=== PATIENT | female | born 1995 ===

== ENCOUNTER 2020-03-06 13:45 | Outpatient (REF) | payer OTHER, SELFPAY ==
[2020-03-07 02:21] LABS: CT PCR NOT DETECTED (Not Detect.); NG PCR NOT DETECTED (Not Detect.)
== END 2020-03-06 13:46 | disposition home or self-care (01) ==
LOC: HO.LAB 13:45
PROVIDERS: PCP Internal Medicine; Referring Provider Internal Medicine; Visit Provider Advanced Practice Midwife
DX: Z01.419 Encounter for gynecological examination (general) (routine) without abnormal findings (principal); R10.2 Pelvic and perineal pain; Z30.09 Encounter for other general counseling and advice on contraception; Z86.19 Personal history of other infectious and parasitic diseases
CPT/HCPCS: 87491; 87591

== ENCOUNTER → 2020-08-28 09:44 | Outpatient (BNVA) | payer OTHER, SELFPAY | PROVIDERS: PCP Internal Medicine; Visit Provider Obstetrics & Gynecology ==

== ENCOUNTER 2020-11-13 13:35 | Outpatient (REF) | payer OTHER, SELFPAY ==
--- NOTE | ~2020-11-13 | US_ITS ---
EXAMINATION: US PELVIS CLINICAL INFORMATION: Left ovarian cyst COMPARISON: None TECHNIQUE: Transabdominal and transvaginal pelvic ultrasound was performed. Transvaginal exam was performed for better visualization of the uterus and ovaries. FINDINGS: The uterus is anteverted and measures 7 x 3.8 x 5.1 cm in dimension. No focal uterine lesion is seen. Endometrial thickness is normal measuring 0.3 cm. The ovaries are normal in size. Right ovary measures 2.5 x 1.8 x 1.8 cm. The left ovary measures 2.8 x 1.4 x 1.5 cm. There are multiple small cysts or follicles seen in both ovaries, all measuring less than 1 cm. There is a small amount of fluid in the pelvis. US/US pelvic and transvaginal IMPRESSION: Unremarkable exam. There are multiple small subcentimeter simple cysts or follicles in both ovaries.
== END 2020-11-13 13:36 | disposition home or self-care (01) ==
LOC: HO.US 13:35
PROVIDERS: Visit Provider Obstetrics & Gynecology
DX: N83.202 Unspecified ovarian cyst, left side (principal)
CPT/HCPCS: 76830; 76856

== ENCOUNTER → 2020-11-20 11:16 | Outpatient (BNVA) | payer OTHER, SELFPAY | PROVIDERS: Visit Provider Advanced Practice Midwife ==

== ENCOUNTER 2021-10-04 10:18 | Outpatient (REF) | payer OTHER, SELFPAY ==
[2021-10-04 15:09] LABS: CT PCR NOT DETECTED (Not Detect.); NG PCR NOT DETECTED (Not Detect.)
[2021-10-05 09:51] LABS: BV Int Neg Control Negative (Negative); BV Int Pos Control Positive (Positive)
== END 2021-10-04 10:19 | disposition home or self-care (01) ==
LOC: HO.LAB 10:18
PROVIDERS: Visit Provider Advanced Practice Midwife
DX: Z01.419 Encounter for gynecological examination (general) (routine) without abnormal findings (principal); R10.2 Pelvic and perineal pain
CPT/HCPCS: 87480; 87491; 87510; 87591; 87660; 88142

== ENCOUNTER 2021-11-09 15:09 | Outpatient (REF) | payer OTHER, SELFPAY ==
--- NOTE | ~2021-11-09 | US_ITS ---
EXAMINATION: US PELVIS CLINICAL INFORMATION: Left ovarian cyst, last menstrual period 10/28/2021 COMPARISON: None TECHNIQUE: Ultrasound of the pelvis is performed using both transabdominal and transvaginal transducers along with Doppler. Transvaginal imaging is performed due to inadequate visualization transabdominally. FINDINGS: The uterus is heterogeneous and measures 7.7 x 3.4 x 4.4 cm. No discrete fibroids. No significant free fluid. Endometrial thickness is 0.9 cm. Right ovary measures 3.4 x 2.6 x 2.2 cm, volume 10.2 mL and left ovary 2.8 x 2.3 x 1.5 cm, volume 5.1 mL. A 2.1 x 2.1 x 2.3 cm right ovarian cyst is likely simple. A 1.2 x 0.8 x 1.0 cm left ovarian cyst is likely simple and likely physiologic. US/US pelvic and transvaginal IMPRESSION: 1. Heterogeneous uterus. No discrete fibroid. 2. Right ovarian 2.3 cm cyst is likely simple. 3. Endometrial thickness 0.9 cm.
== END 2021-11-09 15:10 | disposition home or self-care (01) ==
LOC: HO.US 15:09
PROVIDERS: Visit Provider Advanced Practice Midwife
DX: N83.209 Unspecified ovarian cyst, unspecified side (principal); R10.2 Pelvic and perineal pain
CPT/HCPCS: 76830; 76856

== ENCOUNTER 2022-01-02 11:01 | Outpatient (REF) | payer OTHER, SELFPAY ==
[2022-01-02 13:15] LABS: HCG Quantitative 20534 mIU/mL
== END 2022-01-02 11:02 | disposition home or self-care (01) ==
LOC: HO.LAB 11:01
PROVIDERS: Visit Provider Advanced Practice Midwife
DX: Z32.01 Encounter for pregnancy test, result positive (principal); N83.209 Unspecified ovarian cyst, unspecified side
CPT/HCPCS: 36415; 84702; 99212

== ENCOUNTER 2022-01-04 14:56 | Outpatient (REF) | payer OTHER, SELFPAY ==
[2022-01-04 16:34] LABS: HCG Quantitative 30816 mIU/mL
== END 2022-01-04 14:57 | disposition home or self-care (01) ==
LOC: HO.LAB 14:56
PROVIDERS: Visit Provider Advanced Practice Midwife
DX: Z32.01 Encounter for pregnancy test, result positive (principal)
CPT/HCPCS: 36415; 84702

== ENCOUNTER 2022-01-18 10:42 | Outpatient (REF) | payer OTHER, SELFPAY ==
--- NOTE | ~2022-01-18 | US_ITS ---
EXAMINATION: US OBSTETRICAL ULTRASOUND CLINICAL INFORMATION: Positive test. Check size and dates. COMPARISON: None. LMP: 11/23/2021. Gestational age by maternal dates is 8 weeks 0 days Estimated date of delivery by maternal dates is 08/30/2022. TECHNIQUE: Transabdominal first trimester OB ultrasound FINDINGS: There is a single intrauterine gestational sac with visible yolk sac, embryo/fetus, and cardiac activity. There is no significant subchorionic hemorrhage or hematoma. HR: 169 beats per minute. CRL (crown rump length): 1.7 cm (8 weeks 2 days +/- 4 days). REJI (estimated date of delivery): 08/28/2022 +/- 4 days. MATERNAL ADNEXA: The right maternal ovary measures 3.8 x 2.2 x 2.6 cm. The left maternal ovary measures 4.2 x 2.6 x 2.7 cm. There is a 2.1 x 1.5 x 2.1 cm left renal cyst. There is no significant maternal adnexal mass. No maternal pelvic ascites. US/US OB <= 14 weeks fetus IMPRESSION: 1. Single intrauterine gestation with ultrasound gestational age of 8 weeks 2 days +/- 4 days. 2. Estimated date of delivery is 08/28/2022 +/- 4 days. 3. No maternal adnexal mass or pelvic ascites.
== END 2022-01-18 10:43 | disposition home or self-care (01) ==
LOC: HO.US 10:42
PROVIDERS: Visit Provider Advanced Practice Midwife
DX: Z34.91 Encounter for supervision of normal pregnancy, unspecified, first trimester (principal); Z3A.08 8 weeks gestation of pregnancy
CPT/HCPCS: 76801

== ENCOUNTER 2022-12-04 08:34 | Outpatient (REF) | payer OTHER, SELFPAY ==
[2022-12-04 11:40] LABS: HBc Num1 0.05 S/CO (0.00-0.79); HIV AB/AG Nonreactive (Nonreactive); HIV Num 1 0.05 S/CO (0.00-0.99); Hepatitis B Core Antibody Nonreactive (Nonreactive); Syphilis Screen Nonreactive (Nonreactive); ~HepC Num1 0.06 S/CO (0.00-0.79); ~Hepatitis C Antibody Nonreactive (Nonreactive)
[2022-12-04 13:08] LABS: CT PCR NOT DETECTED (Not Detect.); NG PCR NOT DETECTED (Not Detect.)
[2022-12-05 15:17] LABS: BV Int Neg Control Negative (Negative); BV Int Pos Control Positive (Positive)
== END 2022-12-04 08:35 | disposition home or self-care (01) ==
LOC: HO.LAB 08:34
PROVIDERS: Visit Provider Advanced Practice Midwife
DX: Z01.419 Encounter for gynecological examination (general) (routine) without abnormal findings (principal); Z11.4 Encounter for screening for human immunodeficiency virus [HIV]; Z20.2 Contact with and (suspected) exposure to infections with a predominantly sexual mode of transmission
CPT/HCPCS: 0353U; 86704; 86780; 86803; 87389; 87480; 87510; 87660

== ENCOUNTER 2022-12-04 08:34 | Outpatient (AMB) | payer OTHER, SELFPAY ==
[2022-12-04 08:44] VITALS: BP 110/70; BMI 24.7
--- NOTE | 2022-12-04 08:44 | MHC.OFFVIS ---
Intake Vital Signs 12/04/22 08:44 Height 5 ft 1 in Weight 131 lb BMI 24.7 BP 110/70 Intake Visit Reasons: Annual/30 mins Programming Development Project Manager Required: Yes Programming Development Project Manager Language: Shirt Marker Name: Emy Information Interpreted: non-clinical & clinical Advertising Rep: Advertising Rep Present (Emy) Allergies No Known Allergies Allergy (Verified 12/04/22 08:46) Is last menstrual period known: Yes Last menstrual period: 12/01/22 HPI HPI Comments History of Present Illness Details She is a premenopausal woman presenting for annual exam. 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 She admits to eating healthy and tries to stay active with exercise. Currently sexually active. Uses Mirena for BC. Delivered In August at [facility] where they inserted IUD in September . Denies vaginal itching and irritation. STD screening and blood work offered; she accepts. Denies family hx of breast, colon and ovarian cancer. Last pap smear 10/04/21. [facility] Medical History Cyst of ovary Surgical History No history of previous surgery Family History Father HTN (hypertension) Paternal Grandmother Skin cancer Mother Uterine cancer Paternal Aunt Lung cancer Maternal Grandmother Diabetes Paternal Grandfather Diabetes Social History Alcohol intake: never Patient Tobacco Use Status: Never used Tobacco Sexual orientation: Straight/Heterosexual Gender identity: Female Female Reproductive History Menstrual Age of Menarche: 13 Duration of menses: 3-5 days Date of last menstrual period: 12/01/22 control method: progestin IUCD (Mirena at [facility], , 10/03/2022, IUD strings visible 12/04/22) Total pregnancies: 1 Full term: 1 Number of Living Children: 1 Date of last pap smear: 10/04/21 (neg) Physical Exam Vital Signs: Last Vital Signs BP 110/70 12/04/22 08:44 BMI result Body Mass Index 24.7 Const General: cooperative, healthy appearing, no acute distress, well developed and alert Orientation/consciousness: patient oriented x3 HEENT Head: Yes normal to inspection Eyes General: appearance normal, both eyes and all related structures Neck Neck: Yes normal visual inspection Thyroid: Thyroid normal Chest Chest palpation & inspection: normal inspection of the chest Breast/axilla inspection: normal inspection of the breasts (no puckering, dimpling, peau de orange, retraction, discharge, masses) Breast/axilla palpation: normal palpation of the breasts Resp Effort & Inspection: normal respiratory effort GI Inspection: Yes normal to inspection Palpation (GI): Soft to palpation (to palpation) Rectal Exam - Female: deferred General: Yes bladder normal to inspection External Female Exam: normal external appearance and normal appearance of the urethra Speculum Exam - Vagina: normal appearance of the vagina, normal palpation and normal vaginal discharge Speculum Exam - Cervix: normal appearance of the cervix, normal palpation and Other cervical findings present (IUD strings visible) Bimanual exam- vagina & uterus: normal palpation and normal palpation Bimanual Exam- Adnexa, other: normal adnexae and no masses Skin General skin exam: no rashes or lesions noted Neuro General: patient oriented x3 Cognition (Neuro): normal cognition Extrem General: Yes normal to inspection Psych Attitude: cooperative Thought process: Normal thought process present Assessment & Plan Assessment & Plan (1) Well woman exam with routine gynecological exam: Code(s): Z01.419 - Encounter for gynecological examination (general) (routine) without abnormal findings Plan: Discussed: Current recommendations for pap smears per ASCCP guidelines Breast awareness and periodic self breast exams. Maintaining a healthy lifestyle including a well balanced diet and routine exercise. All of her questions and concerns were addressed to the best of my ability. RTO in one year for AG. (2) Potential exposure to STD: Code(s): Z20.2 - Contact with and (suspected) exposure to infections with a predominantly sexual mode of transmission Plan: BV testing and GC/CT panel today. STD blood work ordered. Await results and treat accordingly. Orders: Orders Hepatitis B Core Antibody Today Z20.2 - Contact with and (suspected) exposure to infections with a predominantly sexual mode of transmission Hepatitis C Antibody Today Z20.2 - Contact with and (suspected) exposure to infections with a predominantly sexual mode of transmission HIV Ab/Ag Today Z20.2 - Contact with and (suspected) exposure to infections with a predominantly sexual mode of transmission Syphilis Screen Today Z20.2 - Contact with and (suspected) exposure to infections with a predominantly sexual mode of transmission Coding Level of Care Code Est Pt Prev Care 18-39y(46803) Diagnoses Well woman exam with routine gynecological exam Z01.419 Potential exposure to STD Z20.2
== END 2022-12-04 09:23 | disposition home or self-care (01) ==
LOC: HO.HWS 08:34
PROVIDERS: Visit Provider Advanced Practice Midwife
DX: Z01.419 Encounter for gynecological examination (general) (routine) without abnormal findings (principal); Z20.2 Contact with and (suspected) exposure to infections with a predominantly sexual mode of transmission
CPT/HCPCS: 99395

== ENCOUNTER 2022-12-04 09:23 | Outpatient (REF) | payer OTHER, SELFPAY | END 2022-12-04 09:24 | disposition home or self-care (01) | LOC: HO.LNP 09:23 | PROVIDERS: Visit Provider Advanced Practice Midwife | DX: Z13.89 Encounter for screening for other disorder (principal) ==

== ENCOUNTER 2023-03-11 10:42 | Outpatient (REF) | payer OTHER, SELFPAY ==
[2023-03-12 11:11] LABS: CT PCR NOT DETECTED (Not Detect.); NG PCR NOT DETECTED (Not Detect.)
[2023-03-12 12:02] LABS: BV Int Neg Control Negative (Negative); BV Int Pos Control Positive (Positive)
== END 2023-03-11 10:43 | disposition home or self-care (01) ==
LOC: HO.LNP 10:42
PROVIDERS: Visit Provider Advanced Practice Midwife
DX: Z20.2 Contact with and (suspected) exposure to infections with a predominantly sexual mode of transmission (principal); Z97.5 Presence of (intrauterine) contraceptive device
CPT/HCPCS: 0353U; 87480; 87510; 87660; 99212

== ENCOUNTER 2023-03-11 10:42 | Outpatient (AMB) | payer OTHER, SELFPAY ==
--- NOTE | 2023-03-11 10:50 | MHC.OFFVIS ---
Intake Vital Signs 03/11/23 10:51 Height 5 ft 1 in Weight 127 lb BMI 24.0 BP 106/58 L Intake Visit Reasons: Bleeding with IUD Intake Note: Bleeding since insertion the end january heavy flow. Tc Operator Required: Yes Tc Operator Language: Kenyan Information Interpreted: non-clinical & clinical Skip Hoist Operator: Skip Hoist Operator Present (Renaldo) Allergies No Known Allergies Allergy (Verified 03/11/23 10:56) Medication List - Last Reconciled 03/11/23 by Pamela Luna CNM levonorgestrel (Mirena) intrauterine Is last menstrual period known: Yes Last menstrual period: 02/25/23 Post menopausal: No HPI Bleeding with IUD HPI Details Patient is here to talk about bleeding with her Mirena IUD. She gave to her baby girl on August 17 at [facility] she had an IUD inserted on October 02 at [facility] when she was 6 weeks and 3 days . She did not have her menses at the time of insertion. She cites the following days as the days of her period After that.: She never got a period in October in November she had a period from November 28 to December 05 and then again December 23 to and then in December from January 16 to January 20 and then in January from February 25 until yesterday. She says she is not having any increased pain with the IUD she does not feel like the strings of gotten any longer and it is not bothering her when she has sex. [facility] Medical History Cyst of ovary Surgical History No history of previous surgery Family History Father HTN (hypertension) Paternal Grandmother Skin cancer Mother Uterine cancer Paternal Aunt Lung cancer Maternal Grandmother Diabetes Paternal Grandfather Diabetes Social History Alcohol intake: never Patient Tobacco Use Status: Never used Tobacco Sexual orientation: Straight/Heterosexual Gender identity: Female Female Reproductive History Menstrual Age of Menarche: 13 Duration of menses: 3-5 days Date of last menstrual period: 02/25/23 control method: progestin IUCD Total pregnancies: 2 Full term: 2 Number of Living Children: 2 Date of last pap smear: 10/05/21 (negative) Physical Exam Vital Signs: Last Vital Signs BP 106/58 L 03/11/23 10:51 BMI result Body Mass Index 24.0 Other: Strings are not visible there is a clear yellowish discharge from the os consistent with post menses. External Female Exam: normal external appearance Speculum Exam - Vagina: normal appearance of the vagina and normal vaginal discharge Speculum Exam - Cervix: normal appearance of the cervix Bimanual exam- vagina & uterus: normal bimanual exam, uterine size normal, consistency normal, uterine mobility normal, uterine shape normal and non-tender Bimanual Exam- Adnexa, other: normal adnexae, no masses and No adnexal tenderness Results AMB Test Urine AMB Test Urine Negative Last Edit by LADY Vera on 03/11/23 11:00 Results Reviewed Results Reviewed: Laboratory Last Values [facility]st Clinic Negative 03/11/23 10:59 Assessment & Plan Assessment & Plan (1) Presence of 52 mg levonorgestrel-releasing intrauterine device (IUD): Comment: Reportedly placed 10/02/2022 in [facility] at 6 and 3 sevens weeks not with menses at the time. Irregular bleeding since strings missing 03/11/2023 ultrasound ordered. Code(s): Z97.5 - Presence of (intrauterine) contraceptive device Plan I reviewed with her that most likely her irregular bleeding pattern has to do with the Mirena not being inserted at the optimal time with her menses as is recommended. There is a time of adjustment and it may just take some time but since I also do not see the strings I am ordering an ultrasound to verify that the Mirena is in position as is expected. If it is we will have a tele visit after if it is not we will have an in-person visit to discuss whether not we need to do something about the Mirena. If the Mirena is in place as determined by the ultrasound then with time her menses hopefully will revert to a much more normal pattern and may even disappear this irregular bleeding pattern is what is to be expected when it is not inserted with menses. She is otherwise happy with the Mirena IUD. Orders: Orders AMB HCG Urine Test Today Z32.02 - Encounter for test, result negative Coding Level of Care Code Est Pt Level 3 (61527) Diagnoses Presence of 52 mg levonorgestrel-releasing intrauterine device (IUD) Z97.5
[2023-03-11 10:51] VITALS: BP 106/58; BMI 24.0
== END 2023-03-11 11:44 | disposition home or self-care (01) ==
PROVIDERS: Visit Provider Advanced Practice Midwife
DX: Z97.5 Presence of (intrauterine) contraceptive device (principal)
CPT/HCPCS: 99213

== ENCOUNTER 2023-12-26 08:13 | Outpatient (AMB) | payer OTHER, SELFPAY ==
--- NOTE | 2023-12-26 08:20 | A.OFFVIS_ITS ---
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 Doing well with no concerns. Doing well on Depo and no concerns currently. She denies any contraindications to control such as: migraines with aura, history of DVT or pulmonary emboli, high blood pressure, liver disease, thrombolic disorders, Lupus, +CLEMENTINA, breast cancer, or smoking. She tries to eat healthy and stays active with exercise. Currently is sexually active. She denies vaginal itching and irritation. STI screening offered; she accepts. Denies family history of breast, ovarian or colon cancer. Last pap smear 2021, negative. [facility] Medical History Cyst of ovary Surgical History No history of previous surgery Family History Father HTN (hypertension) Paternal Grandmother Skin cancer Mother Uterine cancer Paternal Aunt Lung cancer Maternal Grandmother Diabetes Paternal Grandfather Diabetes Social History Alcohol intake: never Patient Tobacco Use Status: Never used Tobacco Sexual orientation: Straight/Heterosexual Gender identity: Female Female Reproductive History Menstrual Age of Menarche: 13 control method: progesterone injection Total pregnancies: 2 Full term: 2 Number of Living Children: 2 Date of last pap smear: 10/04/21 (neg) Review of Systems Const All systems reviewed & are unremarkable except as noted in HPI and below Reports as per HPI Eyes Reports no additional complaints ENT Reports no additional complaints Card Reports no additional complaints Resp Reports no additional complaints GI Reports as per HPI and Reports no additional complaints Reports as per HPI Musc Reports no additional complaints Skin/Breast Reports as per HPI Neuro Reports no additional complaints Psych Reports no additional complaints Endo Reports no additional complaints Jeremiah/Lymph Reports no additional complaints Aller/Immun Reports no additional complaints Physical Exam Vital Signs: Last Vital Signs BP 100/60 12/26/23 08:21 BMI result Body Mass Index 24.9 Const General: cooperative, healthy appearing, no acute distress, well developed and alert Orientation/consciousness: patient oriented x3 HEENT Head: Yes normal to inspection Eyes General: appearance normal, both eyes and all related structures Neck Neck: Yes normal visual inspection Thyroid: Thyroid normal Chest Chest palpation & inspection: normal inspection of the chest and other (no puc kering, dimpling, peau de orange, retraction, discharge, masses) Breast/axilla inspection: normal inspection of the breasts Breast/axilla palpation: normal palpation of the breasts Resp Effort & Inspection: normal respiratory effort GI Inspection: Yes normal to inspection Palpation (GI): Soft to palpation Rectal Exam - Female: deferred General: Yes bladder normal to palpation External Female Exam: normal external appearance and normal appearance of the urethra Speculum Exam - Vagina: normal appearance of the vagina, normal palpation and normal vaginal discharge Speculum Exam - Cervix: normal appearance of the cervix and normal palpation Bimanual exam- vagina & uterus: normal bimanual exam, normal palpation, uterine size normal, bladder normal to palpation, normal palpation and non-tender Bimanual Exam- Adnexa, other: no masses Skin General skin exam: no rashes or lesions noted Rashes: no rashes Neuro General: patient oriented x3 Cognition (Neuro): normal cognition Extrem General: Yes normal to inspection Psych Attitude: cooperative Thought process: Normal thought process present Assessment & Plan Assessment & Plan (1) Well woman exam with routine gynecological exam: Code(s): Z01.419 - Encounter for gynecological examination (general) (routine) without abnormal findings Category: Medical Plan Discussed: Current recommendations for pap smears per ASCCP guidelines. Breast awareness and periodic breast exams. control hormone use warnings: go to ER if and loss of vision, blindness, severe headache, chest pain or difficulty breathing, severe abdominal pain, or any pain or swelling in an extremity. Advised to continue eating a healthy diet including calcium and vitamin-D and weight-bearing exercises. Long-term Depo side effects can include decrease in bone density. Depo to be sent in to the hospital pharmacy. Patient verbalizes understanding and agrees to the plan of care. She was given opportunity to ask questions and all questions were answered to the best of my ability. RTO in one year for annual community relations coordinator examination. This note is constructed using voice recognition software. While every effort has been made to ensure accuracy, financial examiner errors may have been included. Orders: Orders CT NG by PCR Today Z01.419 - Encounter for gynecological examination (general) (routine) without abnormal findings HIV Ab/Ag Today Z20.2 - Contact with and (suspected) exposure to infections with a predominantly sexual mode of transmission Hepatitis C Antibody Reflex Today Z20.2 - Contact with and (suspected) exposure to infections with a predominantly sexual mode of transmission Hepatitis B Core Antibody Today Z20.2 - Contact with and (suspected) exposure to infections with a predominantly sexual mode of transmission Syphilis Screen Today Z20.2 - Contact with and (suspected) exposure to infections with a predominantly sexual mode of transmission Bacterial Vaginosis Panel Today Z01.419 - Encounter for gynecological examination (general) (routine) without abnormal findings Medications: New medroxyprogesterone (Depo-Provera) 150 mg IM [id number] 1 mL 4RF Coding Level of Care Code Est Pt Prev Care 18-39y(85034) Diagnoses Well woman exam with routine gynecological exam Z01.419
[2023-12-26 08:21] VITALS: BP 100/60; BMI 24.9
== END 2023-12-26 08:46 | disposition home or self-care (01) ==
PROVIDERS: Visit Provider Advanced Practice Midwife
DX: Z01.419 Encounter for gynecological examination (general) (routine) without abnormal findings (principal)
CPT/HCPCS: 99395

== ENCOUNTER 2023-12-26 08:13 | Outpatient (REF) | payer OTHER, SELFPAY | END 2023-12-26 08:14 | disposition home or self-care (01) | LOC: HO.LNP 08:13 | PROVIDERS: Visit Provider Advanced Practice Midwife | DX: Z01.419 Encounter for gynecological examination (general) (routine) without abnormal findings (principal); Z20.2 Contact with and (suspected) exposure to infections with a predominantly sexual mode of transmission | CPT/HCPCS: 99395 ==

== ENCOUNTER 2023-12-26 09:00 | Outpatient (REF) | payer OTHER, SELFPAY ==
[2023-12-26 10:11] LABS: HBc Num1 0.05 S/CO (0.00-0.79); HIV AB/AG Nonreactive (Nonreactive); HIV Num 1 0.04 S/CO (0.00-0.99); Hepatitis B Core Antibody Nonreactive (Nonreactive); ~HepC Num1 0.09 S/CO (0.00-0.79); ~Hepatitis C Antibody Nonreactive (Nonreactive)
[2023-12-26 10:16] LABS: Syphilis Screen Nonreactive (Nonreactive)
[2023-12-26 12:35] LABS: CT PCR NOT DETECTED (Not Detect.); NG PCR NOT DETECTED (Not Detect.)
[2023-12-26 13:23] LABS: Bacterial Vaginosis PCR POSITIVE (Negative); Candida Group PCR DETECTED (Not Detect); Candida glab krusei PCR NOT DETECTED (Not Detect); Trichomonas vaginalis PCR NOT DETECTED (Not Detect)
== END 2023-12-26 09:01 | disposition home or self-care (01) ==
LOC: HO.LAB 09:00
PROVIDERS: Visit Provider Advanced Practice Midwife
DX: Z01.419 Encounter for gynecological examination (general) (routine) without abnormal findings (principal); Z20.2 Contact with and (suspected) exposure to infections with a predominantly sexual mode of transmission
CPT/HCPCS: 0352U; 86704; 86780; 86803; 87389; 87491; 87591